=== PATIENT | male | born 1975 | race Caucasian/White ===

== ENCOUNTER 2024-09-05 14:09 | Emergency (ER) | payer BC, OTHER ==
[2024-09-05] MEDS: Diphtheria,Pertussis(Acell),Tetanus Vaccine 0.5 ML Syringe IM ONE (14:30)
[2024-09-05] MEDS: Lidocaine 1% 5 ML VIAL INJECT ONE (14:31)
== END 2024-09-05 14:36 | disposition home or self-care (01) ==
LOC: LB.ED 14:09
DX: S60.450A Superficial foreign body of right index finger, initial encounter (principal); Z23 Encounter for immunization; W45.8XXA Other foreign body or object entering through skin, initial encounter; Y93.89 Activity, other specified
CPT/HCPCS: 90471; 90715; 99283; J2003